=== PATIENT | male | born 1955 | race Caucasian/White ===

== ENCOUNTER 2017-08-24 21:03 | Emergency (ER) | payer BC, OTHER ==
[2017-08-24] MEDS ORDERED: MORPHINE SULFATE 2 MG/ML DISP.SYRIN IV ONE (21:33)
[2017-08-24] MEDS ORDERED: ONDANSETRON HCL/PF 2 MG/ML VIAL IV ONE (21:33)
[2017-08-24] MEDS ORDERED: MORPHINE SULFATE 4 MG/ML SYRG ONE (21:34)
[2017-08-24] MEDS ORDERED: ONDANSETRON HCL/PF 2 MG/ML VIAL ONE (21:34)
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
[2017-08-24] MEDS ORDERED: NORMAL SALINE 1,000 ML IV ONE (21:57)
[2017-08-24 22:48] VITALS: BP 148/117
== END 2017-08-24 22:37 | disposition short-term general hospital (02) ==
LOC: ER 21:03
DX: T23.391A Burn of third degree of multiple sites of right wrist and hand, initial encounter (principal); T31.0 Burns involving less than 10% of body surface; W86.1XXA Exposure to industrial wiring, appliances and electrical machinery, initial encounter; Y93.89 Activity, other specified; Y92.69 Other specified industrial and construction area as the place of occurrence of the external cause; Y99.0 Civilian activity done for income or pay
CPT/HCPCS: 96374; 96375; 99284; J2405

== ENCOUNTER 2017-08-29 17:51 | Emergency (ER) | payer BC, OTHER ==
[2017-08-29] MEDS ORDERED: MORPHINE SULFATE 4 MG/ML SYRG ONE ×2 (18:02→19:38)
[2017-08-29] MEDS ORDERED: MORPHINE SULFATE 4 MG/ML SYRG SC ONE ×2 (18:05→19:28)
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
[2017-08-29 21:18] VITALS: BP 142/87
== END 2017-08-29 21:17 | disposition home or self-care (01) ==
LOC: ER 17:51
PROC: 2W2EX4Z Dressing of Right Hand using Bandage (ICD-10-PCS; principal; 2017-08-29)
DX: Z48.00 Encounter for change or removal of nonsurgical wound dressing (principal); T23.391D Burn of third degree of multiple sites of right wrist and hand, subsequent encounter; T31.0 Burns involving less than 10% of body surface; T79.8XXD Other early complications of trauma, subsequent encounter; W86.1XXD Exposure to industrial wiring, appliances and electrical machinery, subsequent encounter